=== PATIENT | male | born 1980 | race American Indian/Alaskan Native ===

== ENCOUNTER 2018-09-05 14:30 | Emergency (ER) | payer OTHER ==
[2018-09-05] MEDS ORDERED: NEURONTIN PO ONE ×2 (14:40→15:14)
--- NOTE | 2018-09-05 14:49 | Emergency Department Report ---
ED Chest Pain HPI - General Stated Complaint: CHEST PAIN Time Seen by Provider: 09/05/18 14:39 Source: patient, EMS Mode of arrival: Stretcher Limitations: No Limitations - History of Present Illness Initial Comments: Mr. Aguayo is a very pleasant 38 yo male who presents with chest pain for the past 2 days. He admitted overdosed on methamphetamine 3 days ago. He was transferred from hospital in [place], [place] to [facility] on 101. He has had chest pain intermittently at rest which feels like "nerve shocks". His AICD is in place for "extra skin flap" in his heart. His AICD did not fire. 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 Had previously taken Lortab for several years in order to address chest pain and anxiety. NOw takes Gabapentin. He has not had Gabapentin in 2 days. MD Complaint: chest pain -: Gradual, days(s) (2) Onset: during rest Pain Location: left chest Severity: mild Quality: sharp Consistency: intermittent Improves With: nothing Worsens With: nothing Context: other (as per HPI) - Related Data Allergies Allergy/AdvReac Type Severity Reaction Status Date / Time No Known Allergies Allergy Unverified 09/05/18 14:55 Heart Score - HEART Score History: Slightly suspicious EKG: Non-specific Age: < 45 Risk factors: 1-2 risk factors Troponin: < normal limit HEART Score: 2 ED Review of Systems ROS: Stated complaint: CHEST PAIN Other details as noted in HPI Comment: All other systems reviewed and negative Constitutional: denies: fever Eyes: denies: eye discharge Respiratory: denies: cough, shortness of breath Cardiovascular: chest pain ED Past Medical Hx - Past Medical History Previous Medical History?: Yes Additional medical history: methamphetamine abuse, anxiety - Surgical History Additional Surgical History: AICD - Social History Substance Use Type: Prescribed, Methamphetamines ED Physical Exam - General General appearance: alert, in no apparent distress - Head Head exam: Present: atraumatic, normocephalic - Eye Eye exam: Present: normal appearance - ENT ENT exam: Present: mucous membranes moist - Neck Neck exam: Present: normal inspection, full ROM - Respiratory Respiratory exam: Present: normal lung sounds bilaterally. Absent: respiratory distress, wheezes, rales, rhonchi - Cardiovascular Cardiovascular Exam: Present: regular rate, normal rhythm, normal heart sounds. Absent: systolic murmur, diastolic murmur, rubs, gallop - GI/Abdominal GI/Abdominal exam: Present: soft, normal bowel sounds. Absent: distended, tenderness, guarding, rebound - Rectal Rectal exam: Present: deferred - Extremities Exam Extremities exam: Present: normal inspection - Back Exam Back exam: Present: normal inspection - Neurological Exam Neurological exam: Present: alert, oriented X3 - Psychiatric Psychiatric exam: Present: normal affect, anxious - Skin Skin exam: Present: warm, dry, intact, normal color. Absent: rash ED Course Vital Signs 09/05/18 14:55 Temperature 98.4 F Pulse Rate 99 H Respiratory 16 Rate Blood Pressure 116/77 O2 Sat by Pulse 95 Oximetry ED Medical Decision Making - Lab Data Result diagrams: 09/05/18 14:44 09/05/18 14:44 Laboratory Results - last 24 hr 09/05/18 09/05/18 14:44 14:44 WBC 11.4 H RBC 4.66 Hgb 13.4 Hct 40.6 MCV 87 MCH 29 MCHC 33 RDW 14.0 Plt Count 371 Lymph % (Auto) 18.9 [place] % (Auto) 7.0 Eos % (Auto) 2.5 Baso % (Auto) 1.0 Lymph # 2.1 [place] # 0.8 Eos # 0.3 Baso # 0.1 Seg Neutrophils % 70.6 H Seg Neutrophils # 8.0 H Sodium 140 Potassium 4.2 Chloride 101.0 Carbon Dioxide 26 Anion Gap 17 BUN 14 Creatinine 0.7 L Estimated GFR > 60 BUN/Creatinine Ratio 20 Glucose 97 Calcium 9.6 Total Bilirubin < 0.20 AST 16 ALT 21 Alkaline Phosphatase 92 Troponin T < 0.010 Total Protein 7.7 Albumin 3.7 L Albumin/Globulin Ratio 0.9 - EKG Data 09/05/18 14:48 EKG obtained 14:40 Sinus tachycardia 100 bpm prolonged QT interval biphasic T waves leads V4 and V5 - Medical Decision Making Mr. Aguayo presents with atypical chest pain, "nerve pain". I do not suspect ACS or PE. I do not suspect acute emergent condition. Troponin normal. NOnspecific EKG. Heart score 2. Dc'd back to [facility] in stable condition repeat heart rate 89 bpm prior to discharge Critical care attestation.: If time is entered above; I have spent that time in minutes in the direct care of this critically ill patient, excluding procedure time. ED Disposition Clinical Impression: Chest pain Disposition: [id number]/TX-[id number] ANOTHER TYPE HLTHCARE Is pt being admited?: No Does the pt Need Aspirin: No Condition: Stable Instructions: Chest Pain (ED) Referrals: VAMSHI LOPEZ MD [Staff Physician] - as needed
[2018-09-05 15:12] LABS: Basophils # (Auto) 0.1 K/mm3 (0.0-0.1); Eosinophils # (Auto) 0.3 K/mm3 (0.0-0.4); Eosinophils % (Auto) 2.5 % (0.0-4.3); Hematocrit 40.6 % (35.5-45.6); Hemoglobin 13.4 gm/dl (11.8-15.2); Lymphocytes # (Auto) 2.1 K/mm3 (1.2-5.4); Lymphocytes % (Auto) 18.9 % (13.4-35.0); Mean Corpuscular HGB Conc 33 % (32-34); Mean Corpuscular Volume 87 fl (84-94); Monocytes # (Auto) 0.8 K/mm3 (0.0-0.8); Platelet Count 371 K/mm3 (140-440); Red Blood Count 4.66 M/mm3 (3.65-5.03)
[2018-09-05 15:19] LABS: Alanine Aminotransferase 21 units/L (7-56); Albumin 3.7 g/dL (3.9-5); BUN/Creatinine Ratio 20; Blood Urea Nitrogen 14 mg/dL (9-20); Calcium 9.6 mg/dL (8.4-10.2); Hemolysis Index 7
--- NOTE | 2018-09-05 15:46 | XRay Report ---
PROCEDURE: XR CHEST 1V AP TECHNIQUE: Chest radiograph single view. HISTORY: Chest Pain COMPARISONS: None . 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 There is no visible pulmonary consolidation. No evidence of pneumothorax. No radiographically visible pleural effusion. Cardiac silhouette size is normal without vascular congestion. No visible acute displaced fracture in the regional skeleton. IMPRESSION: No acute cardiopulmonary disease in the visualized chest. This document is electronically signed by Royer Garza MD., Sep 05 2018 03:44:07 PM ET
[2018-09-05 16:57] VITALS: BP 123/88
== END 2018-09-05 17:58 | disposition other institution (70) ==
LOC: ED 14:30
DX: R07.9 Chest pain, unspecified (principal)
CPT/HCPCS: 36415; 71045; 80053; 84484; 85025; 93005; 93010